=== PATIENT | female | born 1960 | race Caucasian/White ===

== ENCOUNTER 2017-07-14 11:11 | Outpatient (CLI) | payer OTHER | END 2017-07-14 15:30 | disposition home or self-care (01) | LOC: HPC 11:11 | DX: B19.20 Unspecified viral hepatitis C without hepatic coma (principal); K74.60 Unspecified cirrhosis of liver; K76.6 Portal hypertension; D69.6 Thrombocytopenia, unspecified; R16.1 Splenomegaly, not elsewhere classified; C22.0 Liver cell carcinoma | CPT/HCPCS: Z7500 ==